=== PATIENT | male | born 1985 | race Caucasian/White ===

== ENCOUNTER 2017-09-04 01:16 | Inpatient (IN) | payer MEDICARE, MEDICAID ==
[~2017-09-04] VITALS: Ht 182.9 cm; Wt 97.6 kg
[2017-09-04 01:47] LABS: BASOPHILS # (AUTO) 0.04 x10^3/uL (0-0.1); BASOPHILS % (AUTO) 1 % (0-1); EOSINOPHILS # (AUTO) 0.35 x10^3/uL (0-0.4); EOSINOPHILS % (AUTO) 4 % (1-7); LYMPHOCYTES # (AUTO) 3.24 x10^3/uL (1-3.4); LYMPHOCYTES % (AUTO) 35 % (22-44); MD NO; MEAN CORPUSCULAR HEMOGLOBIN 29.8 pg (27.5-34.5); MEAN CORPUSCULAR HGB CONC 33.5 g/dL (33.2-36.2); MEAN PLATELET VOLUME 8.6 fL (7.4-10.4); MONOCYTES # (AUTO) 0.74 x10^3/uL (0.2-0.8); MONOCYTES % (AUTO) 8 % (2-9); NEUTROPHILS # (AUTO) 4.94 x10^3/uL (1.8-6.8); NEUTROPHILS % (AUTO) 53 % (42-75); PLATELET COUNT 249 x10^3/uL (130-400); RED CELL DISTRIBUTION WIDTH 13.8 % (9.4-14.8)
[2017-09-04 01:56] LABS: ALBUMIN 3.8 g/dL (3.4-5.0); ANION GAP 8 mmol/L (5-15); CALCIUM 8.5 mg/dL (8.5-10.1); CHLORIDE 109 mmol/L (98-107)
[2017-09-04 02:01] LABS: ACETAMINOPHEN < 2 mcg/mL (10-30); ALANINE AMINOTRANSFERASE 39 U/L (12-78); ALKALINE PHOSPHATASE 63 U/L (45-117); BILIRUBIN,TOTAL 0.3 mg/dL (0.2-1.0); CREATININE 1.01 mg/dL (0.7-1.3); SALICYLATE LEVEL < 1.7 mg/dL (2.8-20.0)
[2017-09-04 02:15] LABS: AMPHETAMINE SCREEN, URINE Negative (Negative); BARBITURATE SCREEN, URINE Negative (Negative); BENZODIAZEPINE SCREEN, URINE Negative (Negative); CANNABINOID SCREEN, URINE Negative (Negative); COCAINE SCREEN, URINE Negative (Negative); METHADONE SCREEN, URINE Negative (Negative); OPIATE SCREEN, URINE Negative (Negative)
[2017-09-04] MEDS ORDERED: LORazepam 2 MG/ML, 1ML IM ONE (14:30)
[2017-09-04] MEDS ORDERED: ONDANSETRON 2MG/ML, 2ML IVPush PRN (15:00)
[2017-09-04] MEDS ORDERED: hydrALAzine 20 MG/ML, 1ML IVPush PRN (15:00)
[2017-09-04] MEDS ORDERED: LORazepam 2 MG/ML, 1ML IVPush PRN (15:00)
[2017-09-04] MEDS ORDERED: LORazepam 2 MG/ML, 1ML ONE (15:09)
[2017-09-04] MEDS ORDERED: CHLORDIAZEPOXIDE 25 MG CAPSULE ONE (15:09)
[2017-09-04] MEDS: SODIUM CHLORIDE 0.9% 1,000 ML IV SCH (15:17)
[2017-09-04] MEDS ORDERED: CHLORDIAZEPOXIDE 25 MG CAPSULE PO ONE (16:00)
[2017-09-04 16:37] VITALS: BP 150/99
[2017-09-04] MEDS ORDERED: ONDANSETRON ODT 4 MG PO PRN (17:30)
[2017-09-04 19:04] VITALS: BP 145/93
[2017-09-04] MEDS ORDERED: CHLORDIAZEPOXIDE 25 MG CAPSULE PO PRN (20:00)
[2017-09-04] MEDS: CHLORDIAZEPOXIDE 25 MG CAPSULE PO SCH (21:04)
[2017-09-05] MEDS: SODIUM CHLORIDE 0.9% 1,000 ML IV SCH ×3 (01:00→15:59)
[2017-09-05 01:12] VITALS: BP 139/88
[2017-09-05] MEDS: CHLORDIAZEPOXIDE 25 MG CAPSULE PO SCH ×4 (03:00→20:45)
[2017-09-05 08:02] VITALS: BP 126/83
[2017-09-05 12:04] VITALS: BP 146/99
[2017-09-05 12:56] VITALS: BP 145/96
[2017-09-05 19:08] VITALS: BP 112/76
[2017-09-06 01:53] VITALS: BP 129/85
[2017-09-06] MEDS: CHLORDIAZEPOXIDE 25 MG CAPSULE PO SCH ×4 (02:52→20:49)
[2017-09-06 07:43] VITALS: BP 138/99
[2017-09-06 14:38] VITALS: BP 132/89
[2017-09-06 19:05] VITALS: BP 134/92
[2017-09-07] MEDS: CHLORDIAZEPOXIDE 25 MG CAPSULE PO SCH ×3 (03:02→16:30)
[2017-09-07 03:26] VITALS: BP 128/88
[2017-09-07 07:00] VITALS: BP 128/84
[2017-09-07 14:16] VITALS: BP 128/92
== END 2017-09-07 17:00 | DRG 897 ==
LOC: ED 04:17 → OBSVTOIN 13:07 → EDIP 13:07 → 3NE 17:19
PROVIDERS: ADMIT Hospitalist; ATTEND Hospitalist
DX: F10.120 Alcohol abuse with intoxication, uncomplicated (principal); R45.851 Suicidal ideations; F32.9 Major depressive disorder, single episode, unspecified; Y90.7 Blood alcohol level of 200-239 mg/100 ml; R00.0 Tachycardia, unspecified; I10 Essential (primary) hypertension
CPT/HCPCS: 36415; 80053; 80307; 80329; 85025; 93005; 96374; G0480; J2060; J7030

== ENCOUNTER 2017-12-23 08:43 | Observation (INO) | payer MEDICARE, MEDICAID ==
[~2017-12-23] VITALS: Ht 167.6 cm; Wt 90.9 kg
[2017-12-23 09:24] LABS: BASOPHILS # (AUTO) 0.06 x10^3/uL (0-0.1); BASOPHILS % (AUTO) 1 % (0-1); EOSINOPHILS # (AUTO) 0.41 x10^3/uL (0-0.4); EOSINOPHILS % (AUTO) 5 % (1-7); LYMPHOCYTES # (AUTO) 2.41 x10^3/uL (1-3.4); LYMPHOCYTES % (AUTO) 29 % (22-44); MD NO; MEAN CORPUSCULAR HEMOGLOBIN 30.5 pg (27.5-34.5); MEAN CORPUSCULAR HGB CONC 34.8 g/dL (33.2-36.2); MEAN CORPUSCULAR VOLUME 87.7 fL (81-97); MEAN PLATELET VOLUME 9.1 fL (7.4-10.4); MONOCYTES # (AUTO) 0.41 x10^3/uL (0.2-0.8); MONOCYTES % (AUTO) 5 % (2-9); NEUTROPHILS # (AUTO) 5.11 x10^3/uL (1.8-6.8); NEUTROPHILS % (AUTO) 61 % (42-75); PLATELET COUNT 238 x10^3/uL (130-400); RED BLOOD COUNT 5.24 x10^6/uL (4.38-5.82); RED CELL DISTRIBUTION WIDTH 13.7 % (9.4-14.8)
[2017-12-23 09:35] LABS: ALBUMIN 4.1 g/dL (3.4-5.0); ANION GAP 8 mmol/L (5-15); CALCIUM 8.5 mg/dL (8.5-10.1); CHLORIDE 104 mmol/L (98-107); SALICYLATE LEVEL 2.6 mg/dL (2.8-20.0)
[2017-12-23 09:38] LABS: ALANINE AMINOTRANSFERASE 52 U/L (12-78); ALKALINE PHOSPHATASE 80 U/L (45-117); BILIRUBIN,TOTAL 0.5 mg/dL (0.2-1.0); CREATININE 1.07 mg/dL (0.7-1.3); TOTAL PROTEIN 8.5 g/dL (6.4-8.2)
[2017-12-23 09:42] LABS: ACETAMINOPHEN < 2 mcg/mL (10-30)
[2017-12-23 10:03] LABS: AMPHETAMINE SCREEN, URINE Negative (Negative); BARBITURATE SCREEN, URINE Negative (Negative); BENZODIAZEPINE SCREEN, URINE Negative (Negative); CANNABINOID SCREEN, URINE Negative (Negative); COCAINE SCREEN, URINE Negative (Negative); METHADONE SCREEN, URINE Negative (Negative); OPIATE SCREEN, URINE Negative (Negative)
[2017-12-23] MEDS ORDERED: ACETAMINOPHEN 325 MG TABLET ONE (15:19)
[2017-12-23] MEDS ORDERED: LORazepam 1MG TABLET PO PRN (15:30)
[2017-12-23] MEDS ORDERED: ACETAMINOPHEN 325 MG TABLET PO PRN (15:30)
[2017-12-23 19:34] VITALS: BP 132/89
== END 2017-12-23 22:25 ==
LOC: ED 14:53 → EDIP 15:01 → 2N 16:10
PROVIDERS: ADMIT Hospitalist; ATTEND Hospitalist
DX: R45.851 Suicidal ideations (principal); R00.0 Tachycardia, unspecified; F33.1 Major depressive disorder, recurrent, moderate; F10.220 Alcohol dependence with intoxication, uncomplicated; F25.9 Schizoaffective disorder, unspecified; I10 Essential (primary) hypertension; Z91.5 Personal history of self-harm
CPT/HCPCS: 36415; 80053; 80307; 80329; 85025; 99285; G0378; G0480

== ENCOUNTER 2018-04-08 16:12 | Observation (INO) | payer MEDICARE, MEDICAID ==
[~2018-04-08] VITALS: Ht 167.6 cm; Wt 110.0 kg
[2018-04-08 16:15] VITALS: BP 149/100
[2018-04-08 16:56] LABS: MEAN CORPUSCULAR HEMOGLOBIN 30.4 pg (27.5-34.5); MEAN CORPUSCULAR HGB CONC 34.4 g/dL (33.2-36.2); MEAN CORPUSCULAR VOLUME 88.6 fL (81-97); MEAN PLATELET VOLUME 8.8 fL (7.4-10.4); PLATELET COUNT 216 x10^3/uL (130-400); RED BLOOD COUNT 5.17 x10^6/uL (4.38-5.82); RED CELL DISTRIBUTION WIDTH 13.2 % (9.4-14.8)
[2018-04-08 17:05] LABS: ALBUMIN 4.3 g/dL (3.4-5.0); ANION GAP 9 mmol/L (5-15); CALCIUM 8.8 mg/dL (8.5-10.1); CHLORIDE 106 mmol/L (98-107); CREATININE 1.23 mg/dL (0.7-1.3); SALICYLATE LEVEL 2.6 mg/dL (2.8-20.0)
[2018-04-08 17:08] LABS: ACETAMINOPHEN < 2 mcg/mL (10-30)
[2018-04-08 17:10] LABS: AMPHETAMINE SCREEN, URINE Positive (Negative); BARBITURATE SCREEN, URINE Negative (Negative); BENZODIAZEPINE SCREEN, URINE Negative (Negative); CANNABINOID SCREEN, URINE Negative (Negative); COCAINE SCREEN, URINE Negative (Negative); METHADONE SCREEN, URINE Negative (Negative); OPIATE SCREEN, URINE Negative (Negative)
[2018-04-08 17:21] LABS: MD YES
[2018-04-08 17:24] LABS: BAND#(MANUAL) 0.61 x10^3/uL; BANDS%(MANUAL) 4 % (0-7); LYMPH#(MANUAL) 1.07 x10^3/uL (1-3.4); LYMPHS% (MANUAL) 7 % (22-44); MONOS#(MANUAL) 0.61 x10^3/uL (0.3-2.7); MONOS% (MANUAL) 4 % (2-9); SEG#(MANUAL) 13.01 x10^3/uL (1.8-6.8); SEGS% (MANUAL) 85 % (42-75)
[2018-04-08 17:26] LABS: <PLATELET ESTIMATE> ADEQUATE; <PLT MORPHOLOGY> NORMAL PLT MORPH; <RBC MORPHOLOGY> NORMAL
[2018-04-08] MEDS ORDERED: ONDANSETRON ODT 4 MG PO PRN (21:30)
[2018-04-08] MEDS ORDERED: ACETAMINOPHEN 325 MG TABLET PO PRN (21:30)
[2018-04-08] MEDS ORDERED: ZIPRASIDONE 20 MG INJ IM PRN (21:30)
[2018-04-08] MEDS ORDERED: DIPHENHYDRAMINE 50 MG CAPSULE PO PRN (21:30)
[2018-04-08] MEDS ORDERED: ZIPRASIDONE 20MG CAPSULE PO PRN (21:30)
[2018-04-08] MEDS ORDERED: DOCUSATE 100 MG CAPSULE PO PRN (21:30)
== END 2018-04-08 22:42 | disposition home or self-care (01) ==
LOC: ED 17:45 → EDIP 21:15 → SUATTDRO 21:24
PROVIDERS: ADMIT Family Medicine; ATTEND Family Medicine
DX: R45.851 Suicidal ideations (principal); F15.10 Other stimulant abuse, uncomplicated; F17.200 Nicotine dependence, unspecified, uncomplicated; F25.9 Schizoaffective disorder, unspecified; F33.2 Major depressive disorder, recurrent severe without psychotic features; Z91.5 Personal history of self-harm; Z72.89 Other problems related to lifestyle
CPT/HCPCS: 36415; 80048; 80307; 80329; 82040; 85025; 99284; G0378; G0480

== ENCOUNTER 2019-07-29 14:16 | Emergency (ER) | payer MEDICARE, MEDICAID ==
[~2019-07-29] VITALS: Ht 170.2 cm; Wt 85.9 kg
--- NOTE | 2019-07-29 14:21 | NUR ---
MOM: TIKA OG [phone] DAD: FOREST SHARMA [phone]
[2019-07-29 14:24] VITALS: BP 133/104
[2019-07-29 15:21] LABS: ALANINE AMINOTRANSFERASE 32 U/L (12-78); ALBUMIN 3.3 g/dL (3.4-5.0); ANION GAP 4 mmol/L (5-15); CHLORIDE 104 mmol/L (98-107); CREATININE 1.02 mg/dL (0.7-1.3)
[2019-07-29 15:22] LABS: SALICYLATE LEVEL < 1.7 mg/dL (2.8-20.0)
[2019-07-29 15:24] LABS: ALKALINE PHOSPHATASE 69 U/L (45-117); BASOPHILS # (AUTO) 0.02 x10^3/uL (0-0.1); BASOPHILS % (AUTO) 0 % (0-1); BILIRUBIN,TOTAL 0.4 mg/dL (0.2-1.0); CREATINE KINASE, TOTAL 549 U/L (39-308); EOSINOPHILS # (AUTO) 0.09 x10^3/uL (0-0.4); EOSINOPHILS % (AUTO) 1 % (1-7); LYMPHOCYTES # (AUTO) 1.12 x10^3/uL (1-3.4); LYMPHOCYTES % (AUTO) 13 % (22-44); MD NO; MEAN CORPUSCULAR HEMOGLOBIN 29.7 pg (27.5-34.5); MEAN CORPUSCULAR HGB CONC 33.5 g/dL (33.2-36.2); MEAN CORPUSCULAR VOLUME 88.8 fL (81-97); MEAN PLATELET VOLUME 9.3 fL (7.4-10.4); MONOCYTES # (AUTO) 0.75 x10^3/uL (0.2-0.8); MONOCYTES % (AUTO) 9 % (2-9); NEUTROPHILS # (AUTO) 6.71 x10^3/uL (1.8-6.8); NEUTROPHILS % (AUTO) 77 % (42-75); PLATELET COUNT 206 x10^3/uL (130-400); RED BLOOD COUNT 4.32 x10^6/uL (4.38-5.82); RED CELL DISTRIBUTION WIDTH 12.7 % (9.4-14.8); TOTAL PROTEIN 6.8 g/dL (6.4-8.2)
[2019-07-29 16:30] LABS: AMPHETAMINE SCREEN, URINE Positive (Negative); BARBITURATE SCREEN, URINE Negative (Negative); BENZODIAZEPINE SCREEN, URINE Negative (Negative); CANNABINOID SCREEN, URINE Negative (Negative); COCAINE SCREEN, URINE Negative (Negative); METHADONE SCREEN, URINE Negative (Negative); OPIATE SCREEN, URINE Negative (Negative)
[2019-07-29] MEDS ORDERED: PROMETHAZINE 25 MG/ML, 1ML IM ONE (16:30)
--- NOTE | 2019-07-29 17:27 | NUR ---
PT GETTING DRESSED. PT FATHER COMING TO PICK SON UP. PT GIVEN PSYCH FACILITY REFERENCE SHEET.
== END 2019-07-29 17:28 | disposition home or self-care (01) ==
LOC: MERGE 14:47 → ED 14:47
DX: F25.9 Schizoaffective disorder, unspecified (principal); F15.10 Other stimulant abuse, uncomplicated; Z72.9 Problem related to lifestyle, unspecified
CPT/HCPCS: 36415; 80053; 80307; 82550; 85025; 99284

== ENCOUNTER 2019-08-08 12:38 | Emergency (ER) | payer MEDICARE, MEDICAID ==
[~2019-08-08] VITALS: Ht 167.6 cm; Wt 86.1 kg
--- NOTE | 2019-08-08 12:54 | NUR ---
PT PRESENTS TO ED WITH C/O COUGH X 2 DAYS. PT DENIES ANY OTHER SYMPTOMS, DENIES PAIN. PT STATES HE WENT TO AN OUTPATIENT PSYC APPT AND WAS SENT TO ED FOR MEDICAL CLEARANCE D/T REPORT OF COUGH. PT DENIES SI, PT DENIES HISTORY OF SUICIDE ATTEMPT. PT ATTACHED TO BP AND SPO2 MONITORS. CALL LIGHT IN REACH.
[2019-08-08 13:48] VITALS: BP 136/94
--- NOTE | 2019-08-08 13:48 | NUR ---
REPORT RECEIVED FROM TR WARNER.
--- NOTE | 2019-08-08 13:49 | NUR ---
REPORT GIVEN TO ALANA ALMAGUER, ALL RESULTS BACK, CHART UP FOR RECHECK.
--- NOTE | 2019-08-08 14:12 | NUR ---
Patient given discharge instructions and they have confirmed that they understand the instructions. Patient ambulatory with steady gait.
== END 2019-08-08 14:14 ==
LOC: ED 12:53
DX: J06.9 Acute upper respiratory infection, unspecified (principal); R05 Cough; R06.02 Shortness of breath; F17.200 Nicotine dependence, unspecified, uncomplicated
CPT/HCPCS: 71045; 99283